=== PATIENT | female | born 1990 | race Caucasian/White ===

== ENCOUNTER 2017-01-09 22:52 | Emergency (ER) | payer OTHER ==
[~2017-01-09] VITALS: Ht 162.6 cm; Wt 72.6 kg
[2017-01-09] MEDS ORDERED: SODIUM CHLORIDE 0.9% 1,000 ML IVB ONE (23:08)
[2017-01-09 23:15] VITALS: BP 122/88
== END 2017-01-10 00:35 | disposition left against medical advice (07) ==
LOC: EDBD 22:52 → ER 22:52
DX: F10.129 Alcohol abuse with intoxication, unspecified (principal); Z53.21 Procedure and treatment not carried out due to patient leaving prior to being seen by health care provider
CPT/HCPCS: 96360; 99281; J7030